=== PATIENT | male | born 1975 | race Caucasian/White ===

== ENCOUNTER → 2017-10-29 | Outpatient (CLI) | payer OTHER ==
--- NOTE | 2017-11-05 09:47 | CODING QUERY NO DIAGNOSIS ---
: 1975 TREATMENT RENDERED WITHOUT A DIAGNOSIS To promote full compliance with coding requirements relating to patient care, physician participation is requested in all cases of insurance coder uncertainty. Please assist us with providing a diagnosis/symptom for the test(s) below: A diagnosis/symptom was not documented on your Order. A valid diagnosis/symptom is required to bill all insurances. Please remember that we are unable to code a diagnosis of rule out, probable, possible, questionable, or suspected. Tests that require a diagnosis: DOS: 10/29/17 * VAS DEFEREN PATHOLOGY DIAGNOSIS: Provider Signature: Date: Thank you Tamiko Irizarry [facility] Information [facility] Once completed, please kindly fax back to [phone] For questions please call [phone]
== END | disposition home or self-care (01) ==
LOC: C.PATHSPEC 11:53
PROVIDERS: ATTEND Urology
DX: Z30.2 Encounter for sterilization (principal)